=== PATIENT | male | born 1985 | race Two or more races ===

== ENCOUNTER 2017-01-26 01:51 | Emergency (ER) | payer SELFPAY ==
[~2017-01-26] VITALS: Ht 167.6 cm; Wt 68.0 kg
[2017-01-26 02:21] VITALS: BP 142/93
== END 2017-01-26 02:50 | disposition left against medical advice (07) ==
LOC: ER 02:00
DX: R51 Headache (principal); Z53.21 Procedure and treatment not carried out due to patient leaving prior to being seen by health care provider
CPT/HCPCS: 36600; 82805